=== PATIENT | female | born 1945 | race Caucasian/White ===

== ENCOUNTER 2018-07-11 06:42 | Day surgery (SDC) | payer OTHER ==
[2018-07-11] MEDS ORDERED: LIDOCAINE 2% MPF 5 ML VIAL ONE (06:59)
[2018-07-11] MEDS ORDERED: BUPIVACAINE 0.25% PF 10 ML VIAL ONE (06:59)
[2018-07-11] MEDS ORDERED: CYCLOPENTOLATE 1% OPTH 2 ML ONE (06:59)
[2018-07-11] MEDS ORDERED: LIDOCAINE 1% MPF 5 ML VIAL ONE ×2 (07:00→08:32)
[2018-07-11] MEDS ORDERED: TETRACAINE HCL 0.5% 2ML OPTH ONE (07:00)
[2018-07-11] MEDS ORDERED: PHENYLEPHRINE 10% OPTH 5ML ONE (07:00)
[2018-07-11] MEDS ORDERED: NA CHLORIDE 0.9% 500 ML ONE (07:00)
[2018-07-11] MEDS ORDERED: CYCLOPENTOLATE 1% OPTH 2 ML OPTH ONE ×2 (07:30→07:35)
[2018-07-11] MEDS ORDERED: PHENYLEPHRINE 10% OPTH 5ML OPTH ONE ×2 (07:30→07:35)
[2018-07-11] MEDS ORDERED: PROPOFOL 200 MG/20 ML VIAL IV ONE (08:32)
[2018-07-11] MEDS ORDERED: EPINEPHRINE/PF 1 MG/ML AMP ONE ×2 (08:33→09:25)
[2018-07-11] MEDS ORDERED: NS 0.9% VIAL 10 ML ONE (08:33)
[2018-07-11] MEDS ORDERED: BALANCED SALT IRRIG PLAIN 500 ML BTL IRR ONE (08:34)
[2018-07-11] MEDS ORDERED: MOXIFLOXACIN HCL 10 DROPS/ML **OR USE OPTH ONE (08:35)
[2018-07-11] MEDS ORDERED: DUOVISC 1 KIT OPTH ONE (08:35)
--- NOTE | 2018-07-11 09:22 | P.BOP ---
Preoperative diagnosis: Nuclear sclerotic cataract and regular astigmatism OS Postoperative diagnosis: Same Primary procedure: Phacoemulsification with IOL OS Estimated blood loss: None Anesthesia: Local (Subtenon's infusion with anesthesia for cataract surgery) Complications: None Implants: SN6AT3 +19.0 Transferred to: Other (Day surgery) Condition: Good
--- NOTE | 2018-07-11 20:29 | OP ---
Date of Procedure: 07/11/2018 Surgeon: Raquel Trevino MD Anesthesiologist: Jimmy Reeder CRNA. Preoperative Diagnosis: Nuclear sclerotic cataract and regular astigmatism, right eye. Operation Performed: Phacoemulsification with toric intraocular lens implant, right eye. Anesthesia: Per cataract surgery. Complications: None. Description Of Procedure: In day surgery, the patient was prepped with Betadine and draped. A conjunctival incision was made in the inferior nasal quadrant with Mick scissors. A sub-Tenon block consisting of a 1:1 mixture of 2% Xylocaine and 0.25% bupivacaine was placed through the conjunctival incision with a blunt cannula. A Honan balloon was placed over the eye and the patient was transferred to the operating room. In the operating room the patient was prepped and draped in the usual sterile fashion for ophthalmic surgery. A lid speculum was placed in the right eye. Two paracentesis sites were made superiorly and inferiorly in the limbal cornea. Viscoat was placed in the anterior chamber and a crescent blade was used to make a corneal groove and tunnel, and a keratome was used to enter the anterior chamber. Provisc was placed in the anterior chamber and a 360 degree capsulotomy was performed with a cystitome. The lens was hydrodissected with BSS and rotated freely. The lens was removed with a stop and chop technique. 16.72 phaco CDE was used to remove the lens. Residual cortex was removed with the irrigation and aspiration. Provisc was placed in the capsular bag. An SN6AT3 +19.0 at 100 degrees lens was placed in the capsular bag without complications. Irrigation and aspiration were used to remove residual viscoelastic. The paracentesis sites were hydrated with BSS. The wound and paracentesis sites were inspected and found to be watertight. Vigamox 0.07 cc was placed intracamerally at the end of the procedure. The eye was irrigated with balanced salt solution. The eye was patched with a soft cotton patch and Ram metal shield. The patient was returned to day surgery in good condition. Comments: The iris became floppy during phacoemulsification and 1:5000 epinephrine was placed in the anterior chamber. Discharge Instructions: Ms. Bocanegra was discharged to home in good condition and is to follow up with Dr. Trevino in the morning. ANJELICA/LEONA Voice ID: [id number] Report ID: [id number] JOEY
== END 2018-07-11 09:47 | disposition home or self-care (01) ==
LOC: OR 06:42
PROVIDERS: ATTEND Ophthalmology Retina Specialist
PROC: 08RJ3JZ Replacement of Right Lens with Synthetic Substitute, Percutaneous Approach (ICD-10-PCS; principal; 2018-07-11 08:30)
DX: H25.11 Age-related nuclear cataract, right eye (principal); H52.221 Regular astigmatism, right eye; E11.9 Type 2 diabetes mellitus without complications; I10 Essential (primary) hypertension; E07.9 Disorder of thyroid, unspecified; K21.9 Gastro-esophageal reflux disease without esophagitis; M19.90 Unspecified osteoarthritis, unspecified site; Z80.9 Family history of malignant neoplasm, unspecified; Z82.49 Family history of ischemic heart disease and other diseases of the circulatory system
CPT/HCPCS: 82962; 66984; J2704; J0171 ×2; V2630; V2787

== ENCOUNTER 2018-09-05 07:45 | Day surgery (SDC) | payer OTHER ==
[2018-09-05] MEDS ORDERED: NS 0.9% VIAL 10 ML ONE ×2 (08:15→08:16)
[2018-09-05] MEDS ORDERED: BALANCED SALT IRRIG PLAIN 500 ML BTL IRR ONE ×2 (08:15→08:16)
[2018-09-05] MEDS ORDERED: MOXIFLOXACIN HCL 10 DROPS/ML **OR USE OPTH ONE ×2 (08:15→08:16)
[2018-09-05] MEDS ORDERED: DUOVISC 1 KIT OPTH ONE ×2 (08:15→08:16)
[2018-09-05] MEDS ORDERED: EPINEPHRINE/PF 1 MG/ML AMP ONE ×2 (08:15→08:16)
[2018-09-05] MEDS: PHENYLEPHRINE 10% OPTH 5ML ONE ×3 (08:25→08:35)
[2018-09-05] MEDS: CYCLOPENTOLATE 1% OPTH 2 ML ONE ×3 (08:25→08:35)
[2018-09-05] MEDS ORDERED: NA CHLORIDE 0.9% 500 ML ONE (08:28)
[2018-09-05] MEDS: LIDOCAINE 2% MPF 5 ML VIAL ONE ×2 (09:25→09:53)
[2018-09-05] MEDS: BUPIVACAINE 0.25% PF 10 ML VIAL ONE ×2 (09:25→09:53)
[2018-09-05] MEDS: TETRACAINE HCL 0.5% 4ML OPTH ONE ×2 (09:25→09:52)
[2018-09-05] MEDS ORDERED: LIDOCAINE 1% MPF 5 ML VIAL ONE (10:04)
[2018-09-05] MEDS ORDERED: PROPOFOL 200 MG/20 ML VIAL IV ONE (10:04)
[2018-09-05] MEDS ORDERED: LIDOCAINE 1% MPF 2 ML AMPULE ONE (10:18)
[2018-09-05] MEDS ORDERED: LIDOCAINE 2% MPF 5 ML VIAL ONE (10:19)
--- NOTE | 2018-09-05 10:37 | P.BOP ---
Preoperative diagnosis: Nuclear sclerotic cataract OS Postoperative diagnosis: Same + floppy iris OS Primary procedure: Phacoemulsification with IOL OS Estimated blood loss: None Anesthesia: Local (Subtenon's infusion with anesthesia for cataract surgery) Complications: None Implants: SN60WF +19.0 Transferred to: Other (Day surgery) Condition: Good
--- NOTE | 2018-09-05 21:45 | OP ---
Date of Procedure: 09/05/2018 Surgeon: Raquel Trevino MD Anesthesiologist: 1. Jimmy Reeder CRNA. 2. Riley Velez MD. Preoperative Diagnosis: Nuclear sclerotic cataract, left eye. Postoperative Diagnoses: 1.Nuclear sclerotic cataract, left eye. 2.Floppy iris, left eye. Operation Performed: Phacoemulsification with intraocular lens implant, left eye. Anesthesia: Per cataract surgery. Complications: None. Description Of Procedure: In day surgery, the patient was prepped with Betadine and draped. A conju nctival incision was made in the inferior nasal quadrant with Mick scissors. A sub-Tenon block c onsisting of a 1:1 mixture of 2% Xylocaine and 0.25% bupivacaine was placed through the conjunctival incision with a blunt cannula. A Honan balloon was placed over the eye and the patient was transferr ed to the operating room. In the operating room the patient was prepped and draped in the usual sterile fashion for ophthalmic surgery. A lid speculum was placed in the left eye. Two paracentesis sites were made superiorly and inferiorly in the limbal cornea. Viscoat was placed in the anterior chamber and a crescent blade wa s used to make a corneal groove and tunnel, and a keratome was used to enter the anterior chamber. P rovisc was placed in the anterior chamber and a 360 degree capsulotomy was performed with a cystitome . The lens was hydrodissected with BSS and rotated freely. The lens was removed with a stop and cho p technique. 15.26 CDE was used to remove the lens. Residual cortex was removed with the irrigation and aspiration. Provisc was placed in the capsular bag. A SN60WF +19.0 lens was placed in the caps ular bag without complications. Irrigation and aspiration was used to remove residual viscoelastic. The paracentesis sites were hydrated with BSS. The wound and paracentesis sites were inspected and found to be watertight. Vigamox 0.07 cc was placed intracamerally at the end of the procedure. The eye was irrigated with balanced salt solution. The eye was patched with a soft cotton patch and Ram metal shield. The patient was returned to day surgery in good condition. Comments: 1:5000 epinephrine was placed in the anterior chamber prior to Viscoat and throughout the procedure. Discharge Instructions: Ms. Bocanegra was discharged to home in good condition and is to follow up w herlinda Trevino in the morning. ANJELICA/LEONA Voice ID: [id number] Report ID: [id number]
== END 2018-09-05 10:59 | disposition home or self-care (01) ==
LOC: OR 07:45
PROVIDERS: ATTEND Ophthalmology Retina Specialist
PROC: 08RK3JZ Replacement of Left Lens with Synthetic Substitute, Percutaneous Approach (ICD-10-PCS; principal; 2018-09-05 09:30)
DX: H25.12 Age-related nuclear cataract, left eye (principal); E11.9 Type 2 diabetes mellitus without complications; E07.9 Disorder of thyroid, unspecified; I10 Essential (primary) hypertension; Z79.84 Long term (current) use of oral hypoglycemic drugs; Z79.899 Other long term (current) drug therapy; H21.81 Floppy iris syndrome
CPT/HCPCS: 66984; J2704; J0171 ×2; J2001

== ENCOUNTER 2021-03-03 06:26 | Day surgery (SDC) | payer OTHER ==
--- NOTE | 2021-02-28 14:55 | RAD REPORT ---
EXAM DESCRIPTION: RAD - Chest Pa And Lat (2 Views) - 02/28/2021 2:34 pm CLINICAL HISTORY: pre op pending heart cath COMPARISON: Chest Pa And Lat (2 Views) dated 04/27/2016; CHEST PA AND LAT 2 VIEW dated 05/27/2012; CH EST PA AND LAT 2 VIEW dated 10/05/2006 FINDINGS: Lines: None. Lungs: No evidence of edema or pneumonia. Pleural: No significant pleural effusions or pneumothorax. Cardiac: The heart size is within normal limits. Bones: No acute fractures. Multilevel degenerative changes are present in the spine. Other: Surgical clips in the left axilla. IMPRESSION: No acute cardiopulmonary disease.
[2021-02-28 15:07] LABS: Absolute Lymphocytes (CBC) 1.9 K/uL (0.7-4.9); Basophils % 0.7 % (0-1.3); Hematocrit 46.4 % (36.0-45.0); Lymphocytes % 28.5 % (15.3-44.8); RBC Red Blood Cell Count 4.86 M/uL (3.86-4.86)
[2021-02-28 15:20] LABS: Protime INR 1.03
[2021-02-28 15:23] LABS: Potassium 4.1 mmol/L (3.5-5.1)
[2021-03-03] MEDS ORDERED: NA CHLORIDE 0.9% 500 ML ONE (07:13)
[2021-03-03] MEDS ORDERED: LIDOCAINE 1% 20 ML MDV ONE (07:15)
[2021-03-03] MEDS ORDERED: HEPA 1000U/500MLS 1,000 UNIT/500 ML BAG IV ONE (07:15)
[2021-03-03 07:20] VITALS: TEMP 97.4
[2021-03-03] MEDS ORDERED: MIDAZOLAM HCL 2 MG/2 ML INJ ONE (07:33)
[2021-03-03] MEDS ORDERED: NA CHLORIDE 0.9% 0 ML ONE (07:34)
[2021-03-03] MEDS ORDERED: ATROPINE SULF 1 MG/10 ML SYR IV ONE (07:34)
[2021-03-03] MEDS ORDERED: FENTANYL CITR 100 MCG/2 ML ONE (07:34)
--- NOTE | 2021-03-03 08:45 | OP ---
Date of Procedure: 03/03/2021 Surgeon: Karan Tariq MD College Basketball Coach: Chioma Nogueira. She was admitted to my service as an outpatient to the dental laboratory assistant on 03/03/2021. Indication: Cerebrovascular disease and unstable angina. Procedure Performed: Bilateral selective carotid angiogram, left heart catheterization, selective co ronary arteriogram. History Of Present Illness: Ms. Bocanegra is 75, found to have abnormal carotid Doppler at an [facility], with presumably severe carotid disease on the left. She had symptoms with exertion as f ar as chest pain is concerned, brought to the dental laboratory assistant today as an outpatient, prepped and draped in the routine sterile fashion. Given Versed and fentanyl for sedation. A 6-[place] sheath introduced i n the right common femoral artery successfully. Angiography there was normal. Angio-Seal was used t o close the case. A Joaquim catheter left and right were used to do the diagnostic heart catheteriza tion. They were 6-[place]. She had a normal left main. She had diffuse plaquing in the LAD circumfl ex and RCA with no focal stenosis. The JR4 catheter was then used to cannulate the right common donovan tid and the left common carotid assessed separately. Angiography there showed a 30% right ICA and no rmal common carotid artery on the right and a normal external carotid. The catheter was then moved t o the left common carotid which was normal. She had a 40% left ECA and her left CCA was made. Her l eft ICA was normal. There were no complications. Blood Loss: 5 mL. Final Diagnosis: Mild to moderate coronary artery disease and cerebrovascular disease. Plan: Plan is for medical therapy. Anesthesia: Total conscious sedation, 45 minutes. The patient will remain in the hospital for 2 nereyda rs of bedrest and then go home after that. I will see her in the office in 2 weeks. ETHAN/LEONA Voice ID: [id number] Report ID: [id number]
[2021-03-03 10:49] VITALS: BP 148/70; O2SAT 100
== END 2021-03-03 10:20 | disposition home or self-care (01) ==
LOC: CCL 06:26
DX: I25.110 Atherosclerotic heart disease of native coronary artery with unstable angina pectoris (principal); I65.23 Occlusion and stenosis of bilateral carotid arteries; I10 Essential (primary) hypertension; E11.9 Type 2 diabetes mellitus without complications; E78.2 Mixed hyperlipidemia; K21.9 Gastro-esophageal reflux disease without esophagitis; E66.01 Morbid (severe) obesity due to excess calories; Z68.41 Body mass index [BMI] 40.0-44.9, adult; Z20.822 Contact with and (suspected) exposure to COVID-19; Z82.49 Family history of ischemic heart disease and other diseases of the circulatory system
CPT/HCPCS: 85025; 80048; 36415; 85610; 82947; 85730; 71046; 93454; 36222 ×2; U0003; C1893; C1760; J2250; J3010; J7040; J1644; J0583

== ENCOUNTER 2021-09-01 12:15 | Emergency (ER) | payer OTHER ==
--- NOTE | 2021-09-01 14:59 | RAD REPORT ---
EXAM DESCRIPTION: CT - Head Brain Wo Cont - 09/01/2021 2:52 pm CLINICAL HISTORY: Syncope, recurrent Headache, drowsiness COMPARISON: No comparisons TECHNIQUE: All CT scans are performed using dose optimization technique as appropriate and may inclu de automated exposure control or mA/KV adjustment according to patient size. FINDINGS: No intracranial hemorrhage, hydrocephalus or extra-axial fluid collection.No areas of brai n edema or evidence of midline shift. The paranasal sinuses and mastoids are clear. The calvarium is intact. IMPRESSION: No acute intracranial abnormality.
--- NOTE | 2021-09-01 15:11 | RAD REPORT ---
EXAM DESCRIPTION: RAD - Chest Single View - 09/01/2021 3:05 pm CLINICAL HISTORY: syncope Chest pain. COMPARISON: Chest Pa And Lat (2 Views) dated 02/28/2021; Chest Pa And Lat (2 Views) dated 04/27/2016 ; CHEST PA AND LAT 2 VIEW dated 05/27/2012; CHEST PA AND LAT 2 VIEW dated 10/05/2006 FINDINGS: Portable technique limits examination quality. The lungs are grossly clear. The heart is normal in size. No displaced fractures.Left axillary clips. IMPRESSION: No acute intrathoracic process suspected.
[2021-09-01 15:18] LABS: Urine Blood Negative (Negative); Urine Glucose Negative (Negative); Urine Protein Negative (Negative); Urine Specific Gravity 1.025 (1.005-1.030)
[2021-09-01 15:30] LABS: Urine Bacteria <20 /HPF (<20); Urine RBC NONE SEEN /HPF (NONE SEEN)
[2021-09-01 15:31] LABS: Urine Mucus 1+ /HPF (NONE SEEN)
[2021-09-01 15:40] LABS: Absolute Lymphocytes (CBC) 1.8 K/uL (0.7-4.9); Hematocrit 42.8 % (36.0-45.0); Lymphocytes % 32.2 % (15.3-44.8); RBC Red Blood Cell Count 4.51 M/uL (3.86-4.86)
--- NOTE | 2021-09-01 19:31 | ER ---
[facility] Name: Sharron Bocanegra Age: 75 yrs Sex: Female : 1945 Arrival Date: 09/01/2021 Time: 12:22 Bed 20 Private MD: Chinedu Gaytan B Diagnosis: Syncope Presentation: 09/01 14:24 Chief complaint: Spouse and/or significant other states: states that pt has ph "been having episodes" for the last month, reports that pt "gets a blank stare, starts fidgeting and shaking and if she's not sitting down she falls." States that pt is drowsy after episodes occur, pt has no recollection of events. Fell when it first occurred approx 1 month ago, has not recently fallen, states that the episodes have occurred about 5 times over the last month, no hx of seizures. Coronavirus screen: Vaccine status: Patient reports receiving the 2nd dose of the covid vaccine. Ebola Screen: No symptoms or risks identified at this time. No acute neurological deficit is noted. Pre-hospital glucose is not applicable to this patient. Initial Sepsis Screen: Does the patient meet any 2 criteria? No. Patient's initial sepsis screen is negative. Does the patient have a suspected source of infection? No. Patient's initial sepsis screen is negative. Risk Assessment: Do you want to hurt yourself or someone else? Patient reports no desire to harm self or others. 14:24 Method Of Arrival: Wheelchair ph 14:24 Acuity: BILL 2 ph 17:11 Onset of symptoms is unknown. adrian Triage Assessment: 14:28 General: Appears in no apparent distress. comfortable, Behavior is calm, cooperative, ph appropriate for age. Pain: Denies pain. Neuro: Level of Consciousness is awake, alert, obeys commands, Oriented to person, place, time, situation. 15:57 The onset of the patients symptoms was. adrian 17:11 Neuro: Reports dizziness, numbness weakness being dazed and not like self . adrian Stroke Activation: Symptom onset > 6 hours Physician: Stroke Attending; Name: ; Notified At: ; Arrived At: Physician: Chief Stroke Resident; Name: ; Notified At: ; Arrived At: Physician: Stroke Resident; Name: ; Notified At: ; Arrived At: Physician: ED Attending; Name: ; Notified At: ; Arrived At: Physician: ED Resident; Name: ; Notified At: ; Arrived At: Historical: - Allergies: 14:27 No Known Allergies; ph - PMHx: 14:27 breast cancer; Hypertensive disorder; Hypercholesterolemia; Diabetes mellitus; ph - PSHx: 14:27 mastectomy, bilateral; ph - Immunization history:: Adult Immunizations up to date. - Social history:: Smoking status: Patient denies any tobacco usage or history of. Screenin:56 Abuse screen: Denies threats or abuse. Denies injuries from another. Nutritional adrian screening: No deficits noted. Tuberculosis screening: No symptoms or risk factors identified. Fall Risk IV access (20 points). Assessment: 15:55 VAN Scoring: Arm Drift: Patients demonstrates NO arm weakness. Patient is VAN Negative. adrian Visual Disturbance: No visual disturbance noted. Aphasia: No aphasia noted. Neglect: No neglect noted. Patient has been NPO before screening. The patient is alert, and able to follow commands. The patient does not exhibit slurred or garbled speech. The patient is not exhibiting difficulty speaking. The patient does not exhibit difficulty understanding words. The patient is able to swallow own secretions with no drooling or need for suction. Patient tolerated one teaspoon of water. No drooling, immediate coughing, gurgling, or clearing of the throat was noted. The patient tolerated 90mL of water. No drooling, immediate coughing, gurgling, or clearing of the throat was noted. The patient passed the bedside swallow screening. Oral medications may be given as ordered. Contact Physician for further diet orders. T-PA (Activase) Screening: Indications: Contraindications:. 15:56 General: Appears in no apparent distress. Behavior is calm, cooperative. Neuro: No adrian deficits noted. Level of Consciousness is awake, alert, obeys commands, Oriented to person, place, time, situation, Pupils are PERRLA. 19:30 General: Appears in no apparent distress. comfortable, Behavior is calm, cooperative. al4 Pain: Complains of pain in head Pain currently is 1 out of 10 on a pain scale. Neuro: Level of Consciousness is awake, alert, obeys commands, Oriented to person, place, time, situation, Speech is normal, Facial symmetry appears normal. Cardiovascular: Capillary refill < 3 seconds Patient's skin is warm and dry. Respiratory: Airway is patent Respiratory effort is unlabored, Respiratory pattern is regular. 19:32 Reassessment: NOEMY Canseco notified me that patient does not want to wait for al4 recollect on labs before being discharged so the plan is to now print what was done today in the ER and have her follow up with her private physician. 19:59 Reassessment: Patient is alert, oriented x 3, equal unlabored respirations, skin al4 warm/dry/pink. Vital Signs: 14:24 BP 130 / 74; Pulse 63; Resp 18; Temp 98.5; Pulse Ox 98% on R/A; ph 17:02 BP 122 / 63; Pulse 63; Resp 17; Pulse Ox 100% on R/A; adrian 18:17 BP 133 / 67; Pulse 64; Resp 17; Pulse Ox 100% on R/A; adrian 19:31 BP 124 / 54; Pulse 63; Resp 14; Pulse Ox 98% on R/A; Pain 1/10; al4 NIH Stroke Scale Scores: 15:55 NIHSS Score: 0 adrian ED Course: 12:22 Patient arrived in ED. mr 12:23 Chinedu Gaytan MD is Private Physician. mr 12:55 Josemanuel Asencio PA is PHCP. cp 12:55 Juan C Salgado DO is Attending Physician. cp 14:21 Camila Mock, RN is Primary Nurse. ph 14:27 Triage completed. ph 14:28 Arm band placed on Patient placed in waiting room, Patient notified of wait time. ph 14:54 CT Head Brain wo Cont In Process Unspecified. EDMS 15:07 XRAY Chest (1 view) In Process Unspecified. EDMS 15:44 Bed in low position. Call light in reach. Side rails up X 1. Door closed. Noise mb7 minimized. Warm blanket given. 15:56 No provider procedures requiring assistance completed. Inserted saline lock: 20 gauge adrian in right hand, using aseptic technique. 18:16 IV discontinued, intact, Pressure dressing applied. adrian Administered Medications: No medications were administered Outcome: 19:31 Discharge ordered by . cp 19:59 Discharged to home via wheelchair, with family. al4 19:59 Condition: stable 19:59 Discharge instructions given to patient, family, Instructed on discharge instructions, follow up and referral plans. Demonstrated understanding of instructions, follow-up care. 20:00 Patient left the ED. al4 NIH Stroke Scale - NIH Stroke Score Date: 09/01/2021 Time: 15:55 Total Score = 0 1a. Level of Consciousness (LOC) - 0(Alert) 1b. Level of Consciousness (LOC) (Month \\T\\ Age) - 0(Both) 1c. LOC Commands (Open \\T\\ Closes Eyes/Plan Rep) - 0(Both) 2. Best Gaze (Lateral Gaze Paresis) - 0(Normal) 3. Visual Field Loss - 0(No visual loss) 4. Facial Palsy - 0(Normal) 5a. Left Arm: Motor (10-second hold) - 0(No drift) 5b. Right Arm: Motor (10-second hold) - 0(No drift) 6a. Left Leg: Motor (5-second hold - always test supine) - 0(No drift) 6b. Right Leg: Motor (5-second hold - always test supine) - 0(No drift) 7. Limb Ataxia (finger/nose \\T\\ heel/ramirez - test with eyes open) - 0(Absent) 8. Sensory Loss (pinprick arms/legs/face) - 0(Normal) 9. Best Language: Aphasia (description/naming/reading) - 0(No aphasia) 10. Dysarthria (speech clarity - read or repeat words) - 0(Normal) 11. Extinction and Inattention (visual/tactile/auditory/spatial/personal) - 0(No abnormality) Initials: adrian Signatures: Dispatcher [employer] Jennifer Vega Patricia, RN RN Josemanuel Mireles PA PA cp Breneman, Mary 7 Salvador Moncada Heather, RN RN adrian Corrections: (The following items were deleted from the chart) 18:17 18:15 Discharged to home with family, adrian adrian 18:17 18:15 Condition: good adrian adrian 18:17 18:15 Discharge instructions given to patient, family, Prescriptions given X 2, adrian adrian
--- NOTE | 2021-09-01 19:31 | EDPHYS ---
Physician Documentation [facility] Name: Sharron Bocanegra Age: 75 yrs Sex: Female : 1945 Arrival Date: 09/01/2021 Time: 12:22 Bed 20 Private MD: Chinedu Gaytan B ED Physician Juan C Salgado HPI: 09/01 14:45 This 75 yrs old Female presents to ER via Wheelchair with complaints of Weakness, Fall cp Injury. 14:45 The patient presents to the emergency department with weakness of the entire body, cp generalized weakness. Onset: The symptoms/episode began/occurred 1 month(s) ago. Patient's baseline: Neuro: alert and fully oriented, Motor: no deficits, Ambulation: walks without assistance, Speech: normal. Current symptoms: Currently, the patient is not experiencing any symptoms, the patient feels back to baseline. Patient is a 75-year-old female brought to the emergency room by her with concerns of intermittent episodes over the past month in which patient started to have hand tremor, appeared to stare off and then would become weak and fall. Patient reports she does not remember these episodes and has been reports she does not have an immediate period of confusion after each episode. The patient denies any chest pain abdominal pain prior to these episodes, denies headache and denies any persistent weakness. Patient does report episodes in which she appears to have fallen to the ground and patient does not recall these events. Historical: - Allergies: 14:27 No Known Allergies; ph - PMHx: 14:27 breast cancer; Hypertensive disorder; Hypercholesterolemia; Diabetes mellitus; ph - PSHx: 14:27 mastectomy, bilateral; ph - Immunization history:: Adult Immunizations up to date. - Social history:: Smoking status: Patient denies any tobacco usage or history of. ROS: 14:50 Constitutional: Negative for body aches, chills, fever, poor PO intake. cp 14:50 Eyes: Negative for injury, pain, redness, and discharge. cp 14:50 Neck: Negative for pain with movement, pain at rest, stiffness. 14:50 Cardiovascular: Negative for chest pain, edema, palpitations. 14:50 Respiratory: Negative for cough, shortness of breath, wheezing. 14:50 Abdomen/GI: Negative for abdominal pain, nausea, vomiting, and diarrhea. 14:50 : Negative for urinary symptoms. 14:50 Neuro: Positive for syncope, Negative for altered mental status, dizziness, headache, weakness. 14:50 All other systems are negative. Exam: 14:55 Constitutional: The patient appears in no acute distress, alert, awake, comfortable, cp non-diaphoretic, non-toxic, well developed, well nourished. 14:55 Head/Face: Normocephalic, atraumatic. cp 14:55 Eyes: Periorbital structures: appear normal, Pupils: equal, round, and reactive to light and accomodation, Extraocular movements: intact throughout, Conjunctiva: normal, Sclera: no appreciated abnormality, Lids and lashes: appear normal, bilaterally. 14:55 ENT: External ear(s): are unremarkable, Nose: is normal, Mouth: Lips: moist, Oral mucosa: pink and intact, moist, Posterior pharynx: Airway: no evidence of obstruction, patent. 14:55 Neck: ROM/movement: is normal, is supple, without pain, no range of motions limitations. 14:55 Chest/axilla: Inspection: normal, Palpation: is normal, no crepitus, no tenderness. 14:55 Cardiovascular: Rate: normal, Rhythm: regular, Edema: is not appreciated, JVD: is not appreciated. 14:55 Respiratory: the patient does not display signs of respiratory distress, Respirations: normal, no use of accessory muscles, no retractions, Breath sounds: are clear throughout, no decreased breath sounds, no stridor, no wheezing. 14:55 Abdomen/GI: Inspection: abdomen appears normal, Palpation: abdomen is soft and non-tender, in all quadrants. 14:55 Neuro: Orientation: to person, place \T\ time. Mentation: is normal, Cerebellar function: Romberg testing is negative, Motor: moves all fours, strength is normal, Sensation: is normal. 15:15 ECG was reviewed by the Attending Physician. cp Vital Signs: 14:24 BP 130 / 74; Pulse 63; Resp 18; Temp 98.5; Pulse Ox 98% on R/A; ph 17:02 BP 122 / 63; Pulse 63; Resp 17; Pulse Ox 100% on R/A; adrian 18:17 BP 133 / 67; Pulse 64; Resp 17; Pulse Ox 100% on R/A; adrian 19:31 BP 124 / 54; Pulse 63; Resp 14; Pulse Ox 98% on R/A; Pain 1/10; al4 NIH Stroke Scale Scores: 15:55 NIHSS Score: 0 adrian MDM: 14:30 Patient medically screened. 19:28 Data reviewed: vital signs, nurses notes, lab test result(s), EKG, radiologic studies, cp CT scan, plain films. 19:28 ED course: Discussed results of CBC, EKG, and radiology studies and informed patient cp that lab ordered recollect of blood again to perform remaining tests. Patient refuses recollect and requests discharge to home and to f/u with pcp. 09/01 14:40 Order name: CBC with Diff; Complete Time: 15:50 09/01 18:47 Interpretation: Reviewed. 09/01 14:40 Order name: XRAY Chest (1 view); Complete Time: 15:18 09/01 15:19 Interpretation: Report review. 09/01 14:40 Order name: EKG; Complete Time: 14:41 09/01 14:40 Order name: Cardiac monitoring; Complete Time: 17:02 09/01 14:40 Order name: CT Head Brain wo Cont; Complete Time: 15:18 09/01 15:19 Interpretation: Report reviewed. 09/01 14:40 Order name: Urine Microscopic Only; Complete Time: 15:50 09/01 15:50 Interpretation: Normal except: UWBC 5-10; SQEPI 10-20. 09/01 15:18 Order name: Urine Dipstick-Ancillary; Complete Time: 15:50 [facility] 09/01 15:33 Order name: Urine Culture [facility] 09/01 14:40 Order name: EKG - Nurse/Tech; Complete Time: 17:02 09/01 14:40 Order name: IV Saline Lock; Complete Time: 17:02 09/01 14:40 Order name: Labs collected and sent; Complete Time: 17:02 09/01 14:40 Order name: O2 Per Protocol; Complete Time: 17:02 09/01 14:40 Order name: O2 Sat Monitoring; Complete Time: 17:02 09/01 14:40 Order name: Urine Dipstick-Ancillary (obtain specimen); Complete Time: 19:34 04/18 15:42 Order name: Labs - recollect needed: recollect blue and green top; Complete Time: 17:02 bd EC:15 Rate is 62 beats/min. Rhythm is regular. AR interval is normal. QRS interval is normal. cp QT interval is normal. T waves are Inverted in lead aVR. Interpreted by me. Reviewed by me. Administered Medications: No medications were administered Disposition: 21:38 Co-signature as Attending Physician, Juan C ABARCA was immediately available on-site ms3 in the Emergency Department for consultation in the care of the patient.. Disposition Summary: 09/01/21 19:31 Discharge Ordered Location: Home cp Problem: new cp Symptoms: have improved cp Condition: Stable cp Diagnosis - Syncope cp Followup: cp - With: Private Physician - When: 1 - 2 days - Reason: Recheck today's complaints Discharge Instructions: - Discharge Summary Sheet cp - Syncope cp Forms: - Medication Reconciliation Form cp - Thank You Letter cp - Antibiotic Education cp - Prescription Opioid Use cp NIH Stroke Scale - NIH Stroke Score Date: 09/01/2021 Time: 15:55 Total Score = 0 1a. Level of Consciousness (LOC) - 0(Alert) 1b. Level of Consciousness (LOC) (Month \T\ Age) - 0(Both) 1c. LOC Commands (Open \T\ Closes Eyes/Automatic Operator) - 0(Both) 2. Best Gaze (Lateral Gaze Paresis) - 0(Normal) 3. Visual Field Loss - 0(No visual loss) 4. Facial Palsy - 0(Normal) 5a. Left Arm: Motor (10-second hold) - 0(No drift) 5b. Right Arm: Motor (10-second hold) - 0(No drift) 6a. Left Leg: Motor (5-second hold - always test supine) - 0(No drift) 6b. Right Leg: Motor (5-second hold - always test supine) - 0(No drift) 7. Limb Ataxia (finger/nose \T\ heel/ramirez - test with eyes open) - 0(Absent) 8. Sensory Loss (pinprick arms/legs/face) - 0(Normal) 9. Best Language: Aphasia (description/naming/reading) - 0(No aphasia) 10. Dysarthria (speech clarity - read or repeat words) - 0(Normal) 11. Extinction and Inattention (visual/tactile/auditory/spatial/personal) - 0(No abnormality) Initials: adrian Signatures: Dispatcher [employer] Mery Jenkins Patricia, RN RN ph Page, NOEMY Abernathy PA cp Juan C Salgado DO DO ms3
[2021-09-02 01:43] VITALS: TEMP 98.5
[2021-09-02 01:48] VITALS: BP 124/54; O2SAT 98
--- NOTE | 2021-09-02 08:59 | EKG ---
Test Date: 2021-09-01 Test Time: 15:10:36 Diesel Maintenance Technician: MB MEASUREMENT RESULTS: Intervals: Rate: 62 HI: 192 QRSD: 92 QT: 410 QTc: 416 Sandy: P: 60 HI: 192 QRS: 31 T: 70 INTERPRETIVE STATEMENTS: Normal sinus rhythm Incomplete right bundle branch block Borderline ECG Compared to ECG 04/24/2020 12:39:25 Incomplete right bundle-branch block now present Electronically Signed On 09-02-21 08:58:15 CDT by Karan Tariq
== END 2021-09-01 20:00 | disposition home or self-care (01) ==
LOC: ER 12:15
DX: R55 Syncope and collapse (principal); W18.30XA Fall on same level, unspecified, initial encounter; I10 Essential (primary) hypertension; E11.9 Type 2 diabetes mellitus without complications; Z85.3 Personal history of malignant neoplasm of breast; Z90.13 Acquired absence of bilateral breasts and nipples
CPT/HCPCS: 36415; 70450; 71045; 81003; 81015; 85025; 87086; 87088; 93005; 99283

== ENCOUNTER 2023-09-11 22:34 | Emergency (ER) | payer OTHER ==
[2023-09-12] MEDS ORDERED: ONDANSETRON 4 MG/2 ML VIAL ONE (00:05)
[2023-09-12] MEDS ORDERED: NA CHLORIDE 0.9% 1,000 ML ONE (00:05)
[2023-09-12] MEDS ORDERED: MORPHINE 2 MG/ML SYR ONE (00:05)
[2023-09-12 00:23] LABS: PT Prothrombin Time 11.6 SECONDS (9.5-12.5); Protime INR 1.06
[2023-09-12 00:24] LABS: Absolute Basophils 0.1 K/uL (0-0.5); Absolute Eosinophils 0.1 K/uL (0-0.5); Absolute Lymphocytes (CBC) 1.6 K/uL (0.7-4.9); Absolute Monocytes 0.5 K/uL (0.1-1.3); Basophils % 0.7 % (0-1.3); Eosinophils % 0.5 % (0-4.4); Hematocrit 45.7 % (36.0-45.0); Hemoglobin 15.8 g/dL (12.0-15.0); Lymphocytes % 17.5 % (15.3-44.8); MCH 32.3 pg (27.0-35.0); MCHC 34.5 g/dL (32.0-36.0); MCV 93.8 fL (80-100); MPV 9.5 fL (7.6-11.3); Monocytes % 5.5 % (3.3-12.3); Neutrophils % 75.8 % (41.7-73.7); Nucleated Red Blood Cells % 0.1 % (0-0); Platelets 221 thou/uL (152-406); RBC Red Blood Cell Count 4.87 M/uL (3.86-4.86); Red Cell Distribution Width 12.8 % (12.1-15.2)
[2023-09-12 00:37] LABS: Albumin 3.7 g/dL (3.4-5.0); Albumin/Globulin Ratio 0.9 (1.1-1.8); Anion Gap 8.9 mEq/L (5.0-15.0); Bilirubin Direct 0.1 mg/dL (0-0.2); Bilirubin Indirect, Calculated 0.4 mg/dL (0.2-0.8); Bilirubin Total 0.5 mg/dL (0.2-1.0); Magnesium 1.7 mg/dL (1.6-2.4); Potassium 3.9 mEq/L (3.5-5.1); Protein, Total 7.7 g/dL (6.4-8.2); Troponin High Sensitivity 6.4 pg/mL (<58.9)
[2023-09-12 00:39] LABS: Calcium Oxalate Crystals- Ur Many /HPF (None Seen); Specific Gravity 1.027 (1.005-1.030); Sqamous Epithelial <5 /HPF (None Seen); Urine Bacteria <20 /HPF (<20); Urine Bilirubin NEGATIVE (Negative); Urine Blood Negative (Negative); Urine Clarity Clear (Clear); Urine Color Light-Yellow (Yellow); Urine Crystals Unidentified Few /HPF (None Seen); Urine Culture Reflex Order REFLEXED; Urine Glucose 1+ (Negative); Urine Ketones NEGATIVE (Negative); Urine Microscopic Reflex YN ORDER UMIC; Urine Mucus Slight /HPF (None Seen); Urine Nitrite NEGATIVE (Negative); Urine Protein TRACE (Negative); Urine RBC <5 /HPF (None Seen); Urine Urobilinogen Normal (Normal); Urine pH 5.5 (5.0-7.0)
[2023-09-12] MEDS ORDERED: CEFTRIAXONE 1000 MG/VIAL ONE (01:10)
[2023-09-12] MEDS ORDERED: FENTANYL CITR 100 MCG/2 ML ONE (01:11)
[2023-09-12] MEDS ORDERED: NA CHLORIDE 0.9% 50 ML ONE (01:11)
--- NOTE | 2023-09-12 01:59 | ER ---
Nurse's Notes [facility] Name: Sharron Bocanegra Age: 77 yrs Sex: Female : 1945 Arrival Date: 09/11/2023 Time: 22:34 Bed 4 Private MD: Chinedu Gaytan B Diagnosis: Low back pain;Abdominal tenderness;Obesity, unspecified;UTI/ Urinary tract infection, site not specified;Unspecified symptoms and signs involving the musculoskeletal system Presentation: 09/10 22:46 Chief complaint: Patient states: I have a left side back pain that radiates to my ha1 pelvic and hip. 22:46 Coronavirus screen: Vaccine status: Patient reports receiving the 2nd dose of the covid ha1 vaccine. Ebola Screen: No symptoms or risks identified at this time. Initial Sepsis Screen: Does the patient meet any 2 criteria? No. Patient's initial sepsis screen is negative. Does the patient have a suspected source of infection? No. Patient's initial sepsis screen is negative. Risk Assessment: Do you want to hurt yourself or someone else? Patient reports no desire to harm self or others. Onset of symptoms was September 11, 2023. 22:46 Method Of Arrival: Wheelchair ha1 22:46 Acuity: BILL 3 ha1 Triage Assessment: 22:46 General: Appears uncomfortable, Behavior is cooperative. Pain: Complains of pain in ha1 back Pain radiates to pelvis Pain currently is 10 out of 10 on a pain scale. Quality of pain is described as aching, Pain began suddenly. Neuro: Level of Consciousness is awake, alert, obeys commands, Oriented to person, place, time, situation. Cardiovascular: Capillary refill < 3 seconds Patient's skin is warm and dry. Respiratory: Airway is patent Respiratory effort is even, unlabored, Respiratory pattern is regular, symmetrical. GI: Abdomen is round non-distended, Reports nausea. : Musculoskeletal: Circulation, motion, and sensation intact. Range of motion: intact in all extremities, Reports pain in back. Historical: - Allergies: : No Known Allergies; ha1 - PMHx: :57 breast cancer; diabetes mellitus; Hypercholesterolemia; Hypertensive disorder; ha1 - PSHx: : mastectomy; bilateral; ha1 - Immunization history:: Adult Immunizations up to date. - Infectious Disease History:: Denies. - Social history:: Smoking status: Patient denies any tobacco usage or history of. Screenin:02 Abuse screen: Denies threats or abuse. Denies injuries from another. Nutritional ha1 screening: No deficits noted. Tuberculosis screening: No symptoms or risk factors identified. 09/11 00:07 [facility] ED Fall Risk Assessment (Adult) History of falling in the last 3 months, cm10 including since admission No falls in past 3 months (0 pts) Confusion or Disorientation No (0 pts) Intoxicated or Sedated No (0 pts) Impaired Gait Yes (1 pt) Mobility Assist Device Used Yes (1 pt) Altered Elimination No (0 pt) Score/Fall Risk Level 0 - 2 = Low Risk Oriented to surroundings, Maintained a safe environment, Hourly rounding (assess needs \T\ fall precautionary measures) done. Assessment: 09/10 22:46 Reassessment: see triage assessment. ha1 23:40 Reassessment: Patient and/or family updated on plan of care and expected duration. Pain ha1 level reassessed. Patient is alert, oriented x 3, equal unlabored respirations, skin warm/dry/pink. 09/11 00:30 Reassessment: Patient and/or family updated on plan of care and expected duration. Pain ha1 level reassessed. Patient is alert, oriented x 3, equal unlabored respirations, skin warm/dry/pink. Notified Dr. Brantley Patient states symptoms have not improved. 01:00 Reassessment: Patient and/or family updated on plan of care and expected duration. Pain cm10 level reassessed. Patient is alert, oriented x 3, equal unlabored respirations, skin warm/dry/pink. 02:32 Reassessment: Pt pending d/c due to more testing being added on. cm10 Vital Signs: 09/10 22:46 BP 188 / 62; Pulse 62; Resp 19 S; Temp 98(O); Pulse Ox 97% on R/A; Weight 90.72 kg; ha1 Height 5 ft. 1 in. ; Pain 10/10; 23:30 BP 168 / 71; Pulse 64; Resp 17 S; Pulse Ox 99% on R/A; ha1 09/11 00:20 BP 149 / 74; Pulse 65; Resp 17 S; Pulse Ox 97% on R/A; ha1 01:00 BP 171 / 65; Pulse 62; Resp 16; Pulse Ox 100% ; cm10 02:49 BP 151 / 63; Pulse 60; Resp 16; Pulse Ox 100% ; cm10 09/10 22:46 Body Mass Index 37.79 (90.72 kg, 154.94 cm) ha1 09/10 22:46 Pain Scale: Adult ha1 ED Course: 09/10 22:37 Patient arrived in ED. gm2 22:37 Chinedu Gaytan MD is Private Physician. gm2 22:46 Allergy band placed. Bed in low position. Call light in reach. Side rails up X 1. Adult ha1 w/ patient. 22:52 Josemanuel Brantley MD is Attending Physician. [facility] 22:59 Triage completed. ha1 23:34 Melony Mabry, VIJAY is Primary Nurse. cm10 23:50 Assisted to bathroom. cm10 23:53 XRAY Chest (1 view) In Process Unspecified. EDMS 09/11 00:05 Inserted saline lock: 20 gauge in right antecubital area, using aseptic technique. cm10 Blood collected. 00:05 Initial lab(s) drawn, by or, sent to lab. cm10 00:07 Basic Metabolic Panel Sent. cm10 00:07 Lipase Sent. cm10 00:07 CBC with Diff Sent. cm10 00:07 LFT's Sent. cm10 00:07 Magnesium Sent. cm10 00:07 NT PRO-BNP Sent. cm10 00:07 PT-INR Sent. cm10 00:07 Troponin HS Sent. cm10 01:37 CT Abd/Pelvis - IV Contrast Only In Process Unspecified. EDMT 01:56 Chinedu Gaytan MD is Referral Physician. [facility] 02:54 Arm band placed on. cm10 02:54 Provided Education on: Follow-up instructions. cm10 02:54 No provider procedures requiring assistance completed. IV discontinued, intact, cm10 bleeding controlled, No redness/swelling at site. Pressure dressing applied. Administered Medications: 00:05 Drug: NS 0.9% IV 1000 ml IV at 1 bolus Per protocol; 1000 mL bolus Route: IV; Rate: 1 ha1 bolus; Site: right antecubital; 02:53 Follow up: Response: No adverse reaction; IV Status: Completed infusion; IV Intake: cm10 1000ml 00:05 Drug: Ondansetron IVP 4 mg IVP once; over 2 minutes Route: IVP; Site: right antecubital;ha1 02:53 Follow up: Response: No adverse reaction cm10 00:07 Drug: morphine IVP or IV 2 mg IVP once over 4 mins Route: IVP; Infused Over: 4 mins; ha1 Site: right antecubital; 00:30 Follow up: Response: No adverse reaction; Pain is unchanged, physician notified; RASS: ha1 Alert and Calm (0) 01:16 Not Given (Patient Refused): morphineor iv 2 mg IVP once over 4 mins ha1 01:16 Drug: Rocephin IV 1 grams IV at per protocol once; Given slow IV push per pharmacy ha1 instructions Route: IV; Rate: per protocol; Site: right antecubital; 01:45 Follow up: Response: No adverse reaction; IV Status: Completed infusion; IV Intake: cm10 145ml 01:16 Drug: fentaNYL (PF) IVP 50 mcg IVP once Route: IVP; Site: right antecubital; ha1 02:53 Follow up: Response: No adverse reaction cm10 02:32 Drug: Cefdinir PO Suspension 300 mg PO once Route: PO; cm10 02:53 Follow up: Response: No adverse reaction cm10 02:32 Drug: LevOfloxacin PO 250 mg PO once Route: PO; cm10 02:53 Follow up: Response: No adverse reaction cm10 02:45 Drug: Decadron - Dexamethasone IVP 10 mg IVP once Route: IVP; Site: right antecubital; pf1 02:52 Follow up: Response: No adverse reaction cm10 Medication: 00:07 VIS not applicable for this client. cm10 Intake: 01:45 IV: 145ml; Total: 145ml. cm10 02:53 IV: 1000ml; Total: 1145ml. cm10 Outcome: 01:58 Discharge ordered by MD. nur 02:53 Discharged to home via wheelchair, with significant other, cm10 02:53 Condition: good 02:53 Discharge instructions given to patient, Instructed on discharge instructions, follow up and referral plans. medication usage, Demonstrated understanding of instructions, follow-up care, medications, Prescriptions given X 5 02:55 Patient left the ED. cm10 Signatures: Dispatcher [employer] EDMS Josemanuel Brantley MD MD cha Ayala, Heidy, RN RN ha1 Pat Azevedo RN RN pf1 Melony Mabry, RN RN cm10 Tequila Lo 2 Corrections: (The following items were deleted from the chart) 09/10 23:00 22:59 PSHx: mastectomy; ha1 ha1
--- NOTE | 2023-09-12 01:59 | EDPHYS ---
Physician Documentation [facility] Name: Sharron Bocanegra Age: 77 yrs Sex: Female : 1945 Arrival Date: 09/11/2023 Time: 22:34 Bed 4 Private MD: Chinedu Gaytan B ED Physician Josemanuel Brantley HPI: 09/10 23:42 This 77 yrs old Female presents to ER via Wheelchair with complaints of Back liudmila Pain. 23:42 The patient presents with pain that is acute, with no known mechanism of injury. liudmila 23:42 The patient presents with abdominal pain in the left upper quadrant, in the left lower liudmila quadrant, abdominal distention in the upper abdomen, in the lower abdomen. Onset: The symptoms/episode began/occurred 3 day(s) ago. The symptoms are located in the left low back and left mid back. Onset: The symptoms/episode began/occurred 3 day(s) ago. The pain radiates to the left low back and left mid back. Associated signs and symptoms: Pertinent positives: abdominal pain, nausea. Modifying factors: The patient symptoms are alleviated by nothing, the patient symptoms are aggravated by any movement. Severity of symptoms: At their worst the symptoms were moderate, in the emergency department the symptoms are unchanged. The symptoms do not radiate. Associated signs and symptoms: none. Modifying factors: The symptoms are alleviated by nothing, the symptoms are aggravated by movement. Severity of pain: At its worst the pain was mild moderate in the emergency department the pain is unchanged. The patient has not experienced similar symptoms in the past. Historical: - Allergies: 22:59 No Known Allergies; ha1 - PMHx: 22:59 breast cancer; diabetes mellitus; Hypercholesterolemia; Hypertensive disorder; ha1 - PSHx: 22:59 mastectomy; bilateral; ha1 - Immunization history:: Adult Immunizations up to date. - Infectious Disease History:: Denies. - Social history:: Smoking status: Patient denies any tobacco usage or history of. ROS: 23:44 Constitutional: Negative for fever, chills, and weight loss, Eyes: Negative for injury, liudmila pain, redness, and discharge, ENT: Negative for injury, pain, and discharge, Neck: Negative for injury, pain, and swelling, Cardiovascular: Negative for chest pain, palpitations, and edema, Respiratory: Negative for shortness of breath, cough, wheezing, and pleuritic chest pain, Back: Negative for injury and pain, : Negative for injury, bleeding, discharge, and swelling, MS/Extremity: Negative for injury and deformity, Skin: Negative for injury, rash, and discoloration, Neuro: Negative for headache, weakness, numbness, tingling, and seizure, Psych: Negative for depression, anxiety, suicide ideation, homicidal ideation, and hallucinations, Allergy/Immunology: Negative for hives, rash, and allergies, Endocrine: Negative for neck swelling, polydipsia, polyuria, polyphagia, and marked weight changes, Hematologic/Lymphatic: Negative for swollen nodes, abnormal bleeding, and unusual bruising, 23:44 Abdomen/GI: Positive for abdominal pain, of the left upper quadrant and left lower quadrant, Exam: 23:44 Constitutional: This is a well developed, well nourished patient who is awake, alert, liudmila and in no acute distress. Head/Face: Normocephalic, atraumatic. Eyes: Pupils equal round and reactive to light, extra-ocular motions intact. Lids and lashes normal. Conjunctiva and sclera are non-icteric and not injected. Cornea within normal limits. Periorbital areas with no swelling, redness, or edema. ENT: Nares patent. No nasal discharge, no septal abnormalities noted. Tympanic membranes are normal and external auditory canals are clear. Oropharynx with no redness, swelling, or masses, exudates, or evidence of obstruction, uvula midline. Mucous membranes moist. Neck: Trachea midline, no thyromegaly or masses palpated, and no cervical lymphadenopathy. Supple, full range of motion without nuchal rigidity, or vertebral point tenderness. No Meningismus. Chest/axilla: Normal chest wall appearance and motion. Nontender with no deformity. No lesions are appreciated. Cardiovascular: Regular rate and rhythm with a normal S1 and S2. No gallops, murmurs, or rubs. Normal PMI, no JVD. No pulse deficits. Respiratory: Lungs have equal breath sounds bilaterally, clear to auscultation and percussion. No rales, rhonchi or wheezes noted. No increased work of breathing, no retractions or nasal flaring. Back: No spinal tenderness. No costovertebral tenderness. Full range of motion. Female : Normal external genitalia. Skin: Warm, dry with normal turgor. Normal color with no rashes, no lesions, and no evidence of cellulitis. MS/ Extremity: Pulses equal, no cyanosis. Neurovascular intact. Full, normal range of motion. Neuro: Awake and alert, GCS 15, oriented to person, place, time, and situation. Cranial nerves II-XII grossly intact. Motor strength 5/5 in all extremities. Sensory grossly intact. Cerebellar exam normal. Normal gait. Psych: Awake, alert, with orientation to person, place and time. Behavior, mood, and affect are within normal limits. 23:44 Abdomen/GI: Inspection: distension, Bowel sounds: active, Palpation: mild abdominal tenderness, in the posterior aspect of left lateral abdomen, anterior aspect of left lateral abdomen, left upper quadrant and left lower quadrant, 23:44 Musculoskeletal/extremity: DVT Exam: No signs of deep vein thrombosis. no pain, no swelling, no tenderness, negative Homans' sign noted on exam, no appreciated bluish discoloration, no erythema, no increased warmth, 09/11 00:30 ECG was reviewed by the Attending Physician. liudmila 02:05 Skin: Exam negative for abrasion, abscess, cellulitis, rash, liudmila 02:35 Chest/axilla: Inspection: normal, no abrasion, no abscess, no assymetry, no cellulitis, liudmila no deformity, no ecchymosis, no evidence of flail chest, no paradoxical chest wall movement, no puncture, no rash, no scar(s), Axilla: are normal, no acute changes, Breasts: are normal, Lymph nodes: lymphadenopathy is not appreciated, 02:46 Cardiovascular: Exam negative for acute changes, arrhythmia, bradycardia, edema, liudmila gallop, JVD, murmur, pulse deficit, rub, tachycardia, 02:46 Musculoskeletal/extremity: ROM: no acute changes, Circulation is intact in all extremities. Sensation intact. Compartment Syndrome exam of affected extremity: is normal. Weight bearing: able to fully bear weight, Vital Signs: 09/10 22:46 BP 188 / 62; Pulse 62; Resp 19 S; Temp 98(O); Pulse Ox 97% on R/A; Weight 90.72 kg; ha1 Height 5 ft. 1 in. ; Pain 10/10; 23:30 BP 168 / 71; Pulse 64; Resp 17 S; Pulse Ox 99% on R/A; 1 09/11 00:20 BP 149 / 74; Pulse 65; Resp 17 S; Pulse Ox 97% on R/A; ha1 01:00 BP 171 / 65; Pulse 62; Resp 16; Pulse Ox 100% ; cm10 02:49 BP 151 / 63; Pulse 60; Resp 16; Pulse Ox 100% ; cm10 09/10 22:46 Body Mass Index 37.79 (90.72 kg, 154.94 cm) 1 09/10 22:46 Pain Scale: Adult ha MDM: 09/10 22:52 Patient medically screened. [facility] 23:45 Differential diagnosis: chronic back pain, Obesity Osteoarthritis Pyelonephritis Renal liudmila Infarction ruptured disc, Scoliosis Ureterolithiasis bowel obstruction, diverticulitis, gastritis, non-specific abd pain, pancreatitis, Pyelonephritis, Ureterolithiasis, urinary tract infection. Data reviewed: vital signs, nurses notes, lab test result(s), radiologic studies, CT scan. Consideration of Admission/Observation Escalation of care including admission/observation considered. I considered the following discharge prescriptions or medication management in the emergency department Medications were administered in the Emergency Department. See MAR. Independent interpretation of the following test(s) in the Emergency Department EKG: See my EKG interpretation above. Test considered but Not performed: Ultrasound no abd usg. Historians other than the Patient: Spouse/Significant Other: well informed. Care significantly affected by the following chronic conditions: Diabetes, Hypertension, Obesity, Cancer. Counseling: I had a detailed discussion with the patient and/or guardian regarding the historical points, exam findings, and any diagnostic results supporting the discharge/admit diagnosis, lab results, radiology results, the need for outpatient follow up. 09/10 23:28 Order name: Basic Metabolic Panel; Complete Time: 00: [facility] 09/10 23:28 Order name: CBC with Diff; Complete Time: 00: liudmila 09/10 23:28 Order name: LFT's; Complete Time: 00: liudmila 09/10 23:28 Order name: Magnesium; Complete Time: 00:09/10 23:28 Order name: NT PRO-BNP; Complete Time: 00:41 09/10 23:28 Order name: PT-INR; Complete Time: 00:09/10 23:28 Order name: Troponin HS; Complete Time: 00: [facility] 09/10 23:28 Order name: Lipase; Complete Time: 00:41 [facility] 09/10 23:29 Order name: Urinalysis w/ reflexes; Complete Time: 00:41 [facility] 09/11 00:43 Order name: Urine Culture EDMI 09/11 02:32 Order name: D-Dimer; Complete Time: 02:45 [facility] 09/10 23:28 Order name: XRAY Chest (1 view) [facility] 09/10 23:28 Order name: CT Abd/Pelvis - IV Contrast Only [facility] 09/10 23:28 Order name: EKG; Complete Time: 23:29 [facility] 09/10 23:28 Order name: Cardiac monitoring; Complete Time: 00:20 [facility] 09/10 23:28 Order name: EKG - Nurse/Tech; Complete Time: 00:20 [facility] 09/10 23: Order name: IV Saline Lock; Complete Time: 00:07 [facility] 09/10 23:28 Order name: Labs collected and sent; Complete Time: 00:07 [facility] 09/10 23:28 Order name: O2 Per Protocol; Complete Time: 00:03 [facility] 09/10 23:28 Order name: O2 Sat Monitoring; Complete Time: 00:03 [facility] EC/28 00:30 Rate is 60 beats/min. Rhythm is regular. QRS Lavinia is Normal. MD interval is normal. QRS liudmila interval is normal. QT interval is normal. No Q waves. T waves are Normal. No ST changes noted. Clinical impression: NSR w/ Non-specific ST/T Changes and No evidence of ischemia. Interpreted by me. Reviewed by me. Administered Medications: 00:05 Drug: NS 0.9% IV 1000 ml IV at 1 bolus Per protocol; 1000 mL bolus Route: IV; Rate: 1 ha1 bolus; Site: right antecubital; 02:53 Follow up: Response: No adverse reaction; IV Status: Completed infusion; IV Intake: cm10 1000ml 00:05 Drug: Ondansetron IVP 4 mg IVP once; over 2 minutes Route: IVP; Site: right antecubital;ha1 02:53 Follow up: Response: No adverse reaction cm10 00:07 Drug: morphine IVP or IV 2 mg IVP once over 4 mins Route: IVP; Infused Over: 4 mins; ha1 Site: right antecubital; 00:30 Follow up: Response: No adverse reaction; Pain is unchanged, physician notified; RASS: ha1 Alert and Calm (0) 01:16 Not Given (Patient Refused): morphineor iv 2 mg IVP once over 4 mins ha1 01:16 Drug: Rocephin IV 1 grams IV at per protocol once; Given slow IV push per pharmacy ha1 instructions Route: IV; Rate: per protocol; Site: right antecubital; 01:45 Follow up: Response: No adverse reaction; IV Status: Completed infusion; IV Intake: cm10 145ml 01:16 Drug: fentaNYL (PF) IVP 50 mcg IVP once Route: IVP; Site: right antecubital; ha1 02:53 Follow up: Response: No adverse reaction cm10 02:32 Drug: Cefdinir PO Suspension 300 mg PO once Route: PO; cm10 02:53 Follow up: Response: No adverse reaction cm10 02:32 Drug: LevOfloxacin PO 250 mg PO once Route: PO; cm10 02:53 Follow up: Response: No adverse reaction cm10 02:45 Drug: Decadron - Dexamethasone IVP 10 mg IVP once Route: IVP; Site: right antecubital; pf1 02:52 Follow up: Response: No adverse reaction cm10 Disposition Summary: 09/12/23 01:58 Discharge Ordered Notes: Location: Home liudmila Problem: new liudmila Symptoms: have improved liudmila Condition: Stable liudmila Diagnosis - Low back pain liudmila - Abdominal tenderness liudmila - Obesity, unspecified liudmila - UTI/ Urinary tract infection, site not specified liudmila - Unspecified symptoms and signs involving the musculoskeletal system liudmila Followup: liudmila - With: Chinedu Gaytan MD - When: 2 - 3 days - Reason: Recheck today's complaints, Continuance of care, Re-evaluation by your physician Discharge Instructions: - Discharge Summary Sheet liudmila - Abdominal Pain, Adult liudmila - Acute Back Pain, Adult liudmila - Dysuria liudmila - Musculoskeletal Pain liudmila - Obesity, Adult liudmila - Urinary Tract Infection, Adult liudmila - Urinary Tract Infection, Adult, [id number] liudmila - Abdominal Pain, Adult, [id number] liudmila Forms: - Medication Reconciliation Form liudmila - Antibiotic Education liudmila - Prescription Opioid Use liudmila - Patient Portal Instructions liudmila - Leadership Thank You Letter [facility] Prescriptions: - cefdinir 300 mg Oral capsule - take 1 capsule ORAL route every 12 hours; 14 capsule; Refills: 0, Product liudmila Selection Permitted - ondansetron 4 mg Oral Tablet,disintegrating - take 1 tablet ORAL route every 6-8 hours for 5 days; 20 tablet; Refills: 0, [facility] Product Selection Permitted - acetaminophen-codeine 300-30 mg Oral tablet - take 2 tablet ORAL route every 6 hours as needed for pain; 20 tablet; Refills: liudmila 0, Product Selection Permitted - Colace 100 mg Oral Tablet - take 1 tablet ORAL route every 12 hours; 14 tablet; Refills: 0, Product liudmila Selection Permitted - dicyclomine 20 mg Oral tablet - take 1 tablet ORAL route 4 times per day; 28 tablet; Refills: 0, Product liudmila Selection Permitted - levofloxacin 250 mg Oral tablet - take 1 tablet ORAL route once daily; 3 tablet; Refills: 0, Product Selection liudmila Permitted Signatures: Dispatcher [employer] EDJosemanuel Osbron MD MD cha Ayala, Heidy, RN RN ha1 Pat Azevedo RN RN [email or web address] Melony Mabry RN RN cm10 Corrections: (The following items were deleted from the chart) 09/10 23:00 22:59 PSHx: mastectomy; [place] [id number]
[2023-09-12] MEDS ORDERED: levoFLOXacin 250 MG TAB ONE (02:06)
[2023-09-12] MEDS ORDERED: CEFDINIR 300 MG CAP PO ONE (02:06)
[2023-09-12] MEDS ORDERED: dexAMETHasone 10 MG/ML VIAL ONE (02:43)
[2023-09-12 03:39] VITALS: BP 151/63; TEMP 98; O2SAT 100
--- NOTE | 2023-09-12 16:24 | RAD REPORT ---
EXAM DESCRIPTION: CT - Abdomen Pelvis W Contrast - 09/12/2023 7:26 am CLINICAL HISTORY: 77 years, Female, ABD PAIN COMPARISON: None TECHNIQUE: Contrast-enhanced images of the abdomen and pelvis were performed utilizing 5 mm slice th ickness at 5 mm interval reconstruction from the lung bases to the ischial tuberosities after the adm inistration of IV contrast. In addition multiplanar reformats in the coronal and sagittal plane were obtained and reviewed. An individualized dose optimization technique, Automated Exposure Control, was utilized for the perfo rmed procedure. FINDINGS: Lung bases: The lung bases demonstrate to be clear. Liver: The liver demonstrated presence of decreased attenuation corresponding to mild fatty infiltrat ion. Gallbladder: The gallbladder demonstrate to be normal. Adrenal glands: The adrenal glands demonstrate to be normal. Pancreas: The pancreas demonstrate to be normal. Spleen: The spleen demonstrate to be within normal limits. Kidneys: The kidneys demonstrate normal uptake of contrast media. There is no evidence for nephroli thiasis and/or hydronephrosis. GI: Grossly the unopacified stomach, small bowel and large bowel demonstrate to be within normal limi ts. No evidence for bowel dilatation and/or free air. The appendix is normal. The left-sided colon de monstrate to be decompressed with no gross abnormalities. : The urinary bladder demonstrate to be partially distended with no gross abnormalities. Genitalia: The uterus demonstrate to be within normal limits. There are normal adnexal structures. Abdominal aorta: The aorta demonstrated presence of very minimal peripheral atheromatous plaque exten ding into the aortic bifurcation. Retroperitoneum: There is no retroperitoneal lymphadenopathy. There is no evidence for ascites and/or abnormal fluid collections. Bones: The bony structures demonstrate to be within normal limits. Soft tissues: The rest of the soft tissue and bony structures are within normal limits. IMPRESSION: Mild fatty infiltration of the liver. No evidence for nephrolithiasis and/or hydronephrosis. No evidence for acute intra-abdominal process. Electronically signed by: Owen Wang MD 09/12/2023 01:48 AM CDT Due to temporary technical issues with the PACS/Fluency reporting system, reports are being signed by the in house radiologists without review as a courtesy to insure prompt reporting. The interpreting radiologist is fully responsible for the content of the report.
--- NOTE | 2023-09-12 16:26 | RAD REPORT ---
EXAM DESCRIPTION: RAD - Chest Single View - 09/11/2023 11:51 pm CLINICAL HISTORY: ABDOMINAL DISTENTION COMPARISON: None FINDINGS: Cardiac silhouette is within normal limits. Surgical clips at the level of the left axilla noted. There is no focal parenchymal or pleural disease. There is no acute osseous process visualize d. IMPRESSION: No evidence of acute cardiopulmonary disease. Electronically signed by: Devaughn Wheeler MD 09/12/2023 12:16 AM CDT Due to temporary technical issues with the PACS/Fluency reporting system, reports are being signed by the in house radiologists without review as a courtesy to insure prompt reporting. The interpreting radiologist is fully responsible for the content of the report.
--- NOTE | 2023-09-13 12:59 | EKG ---
Test Date: 2023-09-12 Test Time: 00:15:27 Blast Hole Driller: HAILEY MEASUREMENT RESULTS: Intervals: Rate: 60 AK: 162 QRSD: 86 QT: 420 QTc: 420 [place]: P: 73 AK: 162 QRS: 30 T: 74 INTERPRETIVE STATEMENTS: Normal sinus rhythm ST abnormality, possible digitalis effect Abnormal ECG Compared to ECG 09/01/2021 15:10:36 ST (T wave) deviation now present Incomplete right bundle-branch block no longer present Electronically Signed On 09-13-23 12:55:25 CDT by Rodolfo Thapa
== END 2023-09-12 02:55 | disposition home or self-care (01) ==
LOC: ER 22:34
DX: N39.0 Urinary tract infection, site not specified (principal); R10.814 Left lower quadrant abdominal tenderness; R29.91 Unspecified symptoms and signs involving the musculoskeletal system; E66.9 Obesity, unspecified; I10 Essential (primary) hypertension; Z90.13 Acquired absence of bilateral breasts and nipples; Z85.3 Personal history of malignant neoplasm of breast
CPT/HCPCS: 93005; 87088; 85025; 81001; 87086; 80048; 36415; 83735; 85610; 85379; 80076; 84484; 83690; 83880; 74177; 71045; Q9967; J3010; J1100; J2270; J2405; J7030; J0696; 96361; 96365; 96375; 99284